=== PATIENT | male | born 1945 | race Caucasian/White ===

== ENCOUNTER 2018-12-22 10:54 | Outpatient (CLI) | payer MEDICARE, SELFPAY ==
[2018-12-22 12:33] LABS: Abs Immature Grans 0.01 k/cumm (0.0-0.09); Absolute Basophil Count 0.04 k/cumm (0.0-0.2); Absolute Eosinophil Count 0.03 k/cumm (0.0-0.7); Absolute Lymphocyte Count 1.15 k/cumm (1.2-3.4); Absolute Monocyte Count 0.44 k/cumm (0.11-0.7); Absolute Neutrophil Count 3.81 k/cumm (1.2-6.7); Basophils % 0.7; Eosinophils % 0.5; HCT 43.8 % (40.0-50.0); HGB 15.3 g/dL (13.5-17.5); Immature Grans % 0.2; Mean Corp. HGB Concentration 34.9 g/dL (32.0-36.0); Mean Corpuscular Hemoglobin 32.8 pg (27.0-33.0); Mean Corpuscular Volume 93.8 fL (80-95); Mean Platelet Volume 9.6 fL (8.0-11.0); Neutrophils % 69.6; Platelet Count 208 x1000/uL (130-400); RBC 4.67 m/cumm (4.50-6.00); RBC Distribution Width 13.4 % (11.8-14.1); White Blood Cell Count 5.48 k/cumm (4.4-10.8)
[2018-12-22 13:08] LABS: ALT 23 U/L (12-78); AST 15 U/L (15-37); Albumin 3.8 g/dL (3.4-5.0); Alkaline Phosphatase 56 U/L (46-116); Anion Gap 10.7 mmol/L (3-11); BUN 22 mg/dL (7-18); Bilirubin, Total 0.4 mg/dL (0.2-1.0); CO2 26.3 mmol/L (21.0-32.0); CREATININE 1.06 mg/dL (0.70-1.30); Calcium 9.1 mg/dL (8.5-10.1); Chloride 104 mmol/L (98-107); Glucose 95 mg/dL (70-100); Potassium 4.4 mmol/L (3.5-5.1); Sodium 141 mmol/L (136-145); Total Protein 6.7 g/dL (6.4-8.2)
[2018-12-23 09:57] LABS: PSA, Screening <0.1 ng/ml (0-6.5)
== END 2018-12-22 11:14 ==
PROVIDERS: PCP Internal Medicine; Visit Provider Internal Medicine
DX: R50.9 Fever, unspecified (principal); I10 Essential (primary) hypertension; C61 Malignant neoplasm of prostate; Z12.5 Encounter for screening for malignant neoplasm of prostate
CPT/HCPCS: 36415; 80053; 84153; 85025

== ENCOUNTER 2018-12-24 01:29 | Outpatient (CLI) | payer MEDICARE, SELFPAY ==
--- NOTE | 2018-12-24 10:24 | DI.RAD_ITS ---
SYMPTOM/DIAGNOSIS: SMOKER, F17.100, NICOTINE DEPENDENCE PA AND LATERAL CHEST: Comparison is made with 08/14/09. Heart size and pulmonary vasculature are within normal limits. No acute infiltrates, effusions, pneumothoraces or pulmonary nodules are seen. The lungs are hyperinflated consistent with underlying COPD. Age related degenerative changes are seen in the spine. IMPRESSION: COPD. No acute pulmonary process.
== END 2018-12-24 01:49 ==
PROVIDERS: Visit Provider Internal Medicine
DX: F17.200 Nicotine dependence, unspecified, uncomplicated (principal); J44.9 Chronic obstructive pulmonary disease, unspecified
CPT/HCPCS: 71046